=== PATIENT | male | born 2000 | race Caucasian/White ===

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

== ENCOUNTER 2022-01-14 18:44 | Emergency (ER) | payer OTHER ==
[~2022-01-14] VITALS: Ht 175.3 cm; Wt 78.1 kg
[2022-01-14 19:40] LABS: BASO # 0.03 K/mm3 (0.02-0.10); HEMATOCRIT 44.8 % (36.0-47.0); HEMOGLOBIN 15.9 g/dL (12.5-16.1); LYMPH# 1.09 K/mm3 (1.50-4.00); MEAN CELL VOLUME 85 fl (78-95); MEAN CORPUSCULAR HEMOGLOBIN 30 pg (26-32); MEAN CORPUSCULAR HGB CONC 36 g/dL (33-37); MEAN PLATELET VOLUME 10.9 fl (7.4-10.4); NEU # 10.24 K/mm3 (1.40-6.50); PLATELET COUNT 294 K/mm3 (130-400); RED BLOOD COUNT 5.26 M/mm3 (4.20-5.60); RED CELL DISTRIBUTION WIDTH 11.2 % (11.5-14.5)
[2022-01-14 19:55] LABS: ALBUMIN 4.8 g/dL (3.5-5.0)
[2022-01-14 19:56] LABS: POTASSIUM 3.3 mmol/L (3.5-5.1)
[2022-01-14 19:57] LABS: CALCIUM 9.6 mg/dL (8.3-10.5)
[2022-01-14 19:58] LABS: TOTAL PROTEIN 7.3 g/dL (6.4-8.3)
[2022-01-14 20:50] VITALS: BP 148/85
== END 2022-01-14 20:50 | disposition home or self-care (01) ==
LOC: ED 18:44
PROVIDERS: Physician Assistant
DX: I10 Essential (primary) hypertension (principal); F41.9 Anxiety disorder, unspecified; E87.6 Hypokalemia; Z28.310 Unvaccinated for COVID-19